=== PATIENT | male | born 1960 | race Caucasian/White ===

== ENCOUNTER 2017-04-07 10:44 | Observation (INO) | payer MEDICAID ==
[~2017-04-07] VITALS: Ht 193 cm; Wt 135.3 kg
--- NOTE | ~2017-04-07 | EC ---
PATIENT:GILBERTO VARGAS DATE OF SERVICE: 04/07/17 SEX: M MEDICAL RECORD: [id number] DATE OF : 62 LOCATION:D.M2 D.211 AGE OF PATIENT: 56 ADMISSION DATE: 04/07/17 REFERRING PHYSICIAN: INTERPRETING PHYSICIAN: BRIDGETTE PERRY MD ECHOCARDIOGRAM REPORT ECHO CHARGES 4 ECHO COMPLETE CLINICAL DIAGNOSIS: TIA ECHOCARDIOGRAPHIC MEASUREMENTS (adult normal given) AC root (d.<3.7cm) 3.6 cm LV Septum d (<1.2 cm> 1.6 cm Valve Excursion 2.3 cm LV Septum (systole) 2.2 cm Left Atria (s.<4.0cm> 3.5 cm LVPW d(<1.2cm) 1.7 cm RV (d.<2.3cm) 2.5 cm LVPW (sytole) 2.1 cm LV diastole(<5.6CM) 6.6 cm MV E-F(>70mm/sec) cm LV systole 4.2 cm LVOT Diameter 2.2 cm MV exc.(>10mm) cm Est.ejection fraction (50-75%) % Pericardial Effusion N DOPPLER: LVIT cm/sec A 52.0 cm/sec E 50.0 cm/sec LA cm/sec RVSP 32.3 mmHg LVOT 107 cm/sec AOP1/2T m/s Asc. Ao 131 cm/sec RVOT 65.0 cm/sec RA cm/sec PA 82.0 cm/sec AV Gradient Peak 6.9 mmHg AV Mean 3.7 mmHg AV Area 3.0 cm MV Gradient Peak 3.2 mmHg MV Mean 0.70 mmHg MV Area cm COMMENTS: Leasing Associate: Kelby CARPENTEROE Pulmonary Specialist: 1 Dr. Perry TAPE# PACS DATE OF SERVICE: 04/07/2017 Echocardiogram FINDINGS: 1. Left ventricle chamber size is within normal limits. Left ventricular systolic function is normal. Overall ejection fraction estimated at 60%. 2. Left atrium, right atrium, and right ventricular chamber sizes are within normal limits. 3. Valvular structures have normal structure and motion. ECHOCARDIOGRAM REPORT [id number] GILBERTO VARGAS 4. Doppler interrogation reveals only trace mitral regurgitation. No other valvular insufficiency or stenosis. Pulmonary systolic pressure is normal estimated at 32 mmHg. 5. No evidence of pericardial effusion or left ventricular thrombus. TRANSINT:[id number] Voice Confirmation ID: [id number] DOCUMENT ID: [id number] BRIDGETTE PERRY MD CC: [id number] DICTATION DATE: 04/07/17 1640 MULE PACKER: 04/08/17 0038 ADM IN [facility] [address] [id number]
[2017-04-07 11:34] LABS: BASOPHILS 0.4 % (0-2); EOSINOPHILS 1.8 % (0-7); HEMATOCRIT 51.1 % (42.0-54.0); HEMOGLOBIN 17.3 g/dL (13.5-17.5); IMMATURE GRANULOCYTES 0.4 % (0-5); LYMPHOCYTES 34.3 % (15-50); MCH 29.9 pg (26.0-34.0); MCHC 33.9 g/dL (31.0-37.0); MCV 88.4 fL (80.0-100.0); MEAN PLATELET VOLUME 11.7 fL (7.4-10.4); MONOCYTES 8.1 % (2-11); PLATELET COUNT 170 10x3/uL (130-400); RBC 5.78 10x6/uL (4.20-6.10); WBC 7.9 10x3/uL (4.8-10.8)
[2017-04-07 11:45] LABS: APTT 30.1 SECONDS (22.8-39.4); INR 0.96 (0.85-1.17); PROTIME 12.6 SECONDS (11.6-15.0)
[2017-04-07 12:05] LABS: ALKALINE PHOSPHATASE 66 U/L (46-116); ALT (SGPT) 33 U/L (10-68); BILIRUBIN - TOTAL 1.58 mg/dL (0.2-1.3); CALC OSMOLALITY 276 mosm/kg (275-300); CALCIUM 8.4 mg/dL (8.5-10.1); CHLORIDE - SERUM 103 mmol/L (98-107); CREATININE - SERUM 1.1 mg/dL (0.6-1.3); GLUCOSE 103 mg/dL (74-106); POTASSIUM - SERUM 3.7 mmol/L (3.5-5.1); PROTEIN - SERUM 7.8 g/dL (6.4-8.2); SODIUM 138 mmol/L (136-145); UREA NITROGEN 15 mg/dL (7-18); eGFR NON AFRICAN AMERICAN 74 mL/min (90-120)
[2017-04-07 12:15] LABS: TROPONIN-I < 0.017 ng/mL (0.000-0.060)
[2017-04-07] MEDS ORDERED: PRINIVIL20 MG (14:57)
[2017-04-07 15:11] VITALS: BP 145/88; Ht 193 cm; Wt 135.3 kg
--- NOTE | 2017-04-07 15:21 | NUR ---
PATIENT ARRIVED FROM ER. AWAKE AND ORIENTED. GRACE NETWORK PROGRAM MANAGER GOOD AND EQUAL. FEET PUSHES EQUAL. PUPILS BRISK AND OPENS SPONTANEOUSLY. SPEECH IS CLEAR. NO FACIAL DROOPING. EARLIER TODAY, PT STATED HE HAD DIFFICULTY IN SWALLOWING BUT NOT AT PRESENT. MONITOR ON WILL RATE OF 59 AND SINUS PRESTON. WILL CONTINUE TO MONITOR.
--- NOTE | 2017-04-07 15:35 | NUR ---
SCDS APPLIED TO PT. SANDWICH GIVEN TO PT
--- NOTE | 2017-04-07 15:46 | NUR ---
ECHO COMPLETED AT BS.
[2017-04-07 19:00] VITALS: BP 146/94
--- NOTE | 2017-04-07 19:35 | NUR ---
REPORT RECIEVED. PT UP IN ROOM, ALERT AND ORIENTED X4. PT DENIES NEEDS AT THIS TIME, RR EVEN AND UNLABORED. INTRODUCED SELF AND PLACED NAME ON WHITE BOARD.
[2017-04-08] VITALS: BP 149/110
--- NOTE | 2017-04-08 00:30 | NUR ---
PT RESTING QUIETLY, DENIES NEEDS AT THIS TIME, WILL CTM.
[2017-04-08 04:00] VITALS: BP 145/91
--- NOTE | 2017-04-08 04:00 | NUR ---
IV ALARM SOUNDING, OCLUDED SIDE. ASSESSED IV SITE, IV PATENT AND FLUIDS CONT. RR EVEN AND UNLABORED, PT DENIES NEEDS AT THIS TIME. WILL CTM.
--- NOTE | 2017-04-08 04:58 | NUR ---
PIPE CUTTER REPORTED HIGH BP 173/110, RECHECKED MANUALLY AND BP IS 140/82. RECHECKED AGAIN WITH BP MACHINE AND GOT 145/91. WILL CTM.
--- NOTE | 2017-04-08 07:18 | NUR ---
PT UP IN ROOM, RR EVEN AND UNLABORED. WILL GIVE REPORT ON PT CONDITION FOR THE DAY.
--- NOTE | 2017-04-08 08:05 | NUR ---
AM ROUNDING- RECEIVED REPORT FROM DIRECTOR OF SECURITIES AND REAL ESTATE NURSE MITCH. PT IS CURRENTLY SITTING UP IN BED WITH EYES OPEN RESTING. PT DENIES ANY PAIN AT CURRENT TIME. ON ROOM AIR. ON MONITOR SHOWING SB, HR 50. IV SEEN TO LEFT HAND WITH NS RUNNING AT 50CC. NO NEED AT CURRENT TIME. WILL CONTINUE TO MONITOR AND CONTINUE WITH PLAN OF CARE.
[2017-04-08 10:02] VITALS: BP 163/94
[2017-04-08 12:00] VITALS: BP 178/110
[2017-04-08 15:53] LABS: CHOL - HDL RATIO 7.4 ratio (2.3-4.9); LDL-HDL RATIO 4.1 ratio (1.5-3.5)
[2017-04-08] MEDS ORDERED: ASPIRIN325 MG PO (16:54)
--- NOTE | 2017-04-08 17:47 | NUR ---
PT IS SITTING IN BED WITH EYES OPEN RESTING. PT IS ANXIOUSLY AWAITING D/C. INFORMED PT THAT I AM WAITING ON D/C PAPERWORK TO BE COMPLETED. WILL CONTINUE TO MONITOR.
--- NOTE | 2017-04-08 18:33 | NUR ---
RECEIVED CALLBACK FROM DR. BOWSER. INFORMED DR. BOWSER OF PTS BLODD PRESSURES 1) 177/98 2) 167/90 3) 180/[address] BOWSER STATES TO HAVE PT TAKE 10MG (DR. BOWSER INCREASED PTS DOSE TO 30MG FROM 20MG) WHEN GETS HOME. WILL RELAY THIS INFORMATION TO PT AND D/C ORDERED.
--- NOTE | 2017-04-08 18:43 | NUR ---
D/C PAPERWORK EXPLAINED TO PT. D/C PAPERWORK SIGNED BY PT AND PLACED IN CHART. IV TO LEFT HAND REMOVED WITH CATH TIP INTACT. HEART MONITOR REMOVED AND RETURNED TO NATASHA IN TELEMETRY. PT IS AWAITING FAMILY MEMBER TO PICK HIM UP. WILL CONTINUE TO MONITOR.
== END 2017-04-08 18:53 | disposition home or self-care (01) ==
LOC: D.ER 10:44 → OBSVTIME 13:36 → D.M2 13:36
PROVIDERS: Emergency Medicine; Family Medicine; ADMIT Family Medicine
DX: I66.02 Occlusion and stenosis of left middle cerebral artery (principal); I10 Essential (primary) hypertension; R40.2363 Coma scale, best motor response, obeys commands, at hospital admission; R40.2143 Coma scale, eyes open, spontaneous, at hospital admission; R40.2253 Coma scale, best verbal response, oriented, at hospital admission; Z86.73 Personal history of transient ischemic attack (TIA), and cerebral infarction without residual deficits; Z72.0 Tobacco use

== ENCOUNTER 2019-08-07 12:30 | Emergency (ER) | payer MEDICAID ==
[~2019-08-07] VITALS: Ht 193 cm; Wt 118.8 kg
[~2019-08-07 12:30] MED LIST: ASPIRIN325 MG PO; PRINIVIL20 MG
[2019-08-07 12:42] VITALS: Ht 193 cm; Wt 118.8 kg
[2019-08-07] MEDS ORDERED: CHLORTHALIDONE25 MG PO (12:45)
[2019-08-07] MEDS ORDERED: TENORMIN50 MG PO (12:45)
[2019-08-07 13:41] LABS: BASOPHILS 0.1 % (0-2); EOSINOPHILS 0.2 % (0-7); HEMATOCRIT 56.8 % (42.0-54.0); HEMOGLOBIN 19.3 g/dL (13.5-17.5); IMMATURE GRANULOCYTES 0.3 % (0-5); LYMPHOCYTES 11.2 % (15-50); MCH 30.1 pg (26.0-34.0); MCV 88.5 fL (80.0-100.0); MEAN PLATELET VOLUME 10.7 fL (7.4-10.4); MONOCYTES 5.2 % (2-11); PLATELET COUNT 220 10x3/uL (130-400); RBC 6.42 10x6/uL (4.20-6.10); WBC 12.3 10x3/uL (4.8-10.8)
[2019-08-07 13:46] LABS: CALC OSMOLALITY 272 mosm/kg (275-300); CALCIUM 9.6 mg/dL (8.5-10.1); CARBON DIOXIDE 25.8 mmol/L (21.0-32.0); CHLORIDE - SERUM 101 mmol/L (98-107); CREATININE - SERUM 0.8 mg/dL (0.6-1.3); GLUCOSE 110 mg/dL (74-106); POTASSIUM - SERUM 4.1 mmol/L (3.5-5.1); SODIUM 138 mmol/L (136-145); UREA NITROGEN 0 mg/dL (7-18); eGFR NON AFRICAN AMERICAN > 90 mL/min (90-120)
[2019-08-07 13:57] LABS: APTT 30.5 SECONDS (22.8-39.4); INR 1.03 (0.85-1.17)
[2019-08-07 13:58] LABS: ALKALINE PHOSPHATASE 76 U/L (46-116); ALT (SGPT) 27 U/L (10-68); BILIRUBIN - TOTAL 2.42 mg/dL (0.2-1.3); CREATINE KINASE 61 UL (21-232); PROTEIN - SERUM 8.6 g/dL (6.4-8.2)
[2019-08-07 14:25] LABS: ALBUMIN 4.1 g/dL (3.4-5.0); MAGNESIUM - SERUM 2.3 mg/dL (1.8-2.4); TROPONIN-I < 0.017 ng/mL (0.000-0.060)
[2019-08-07 18:03] LABS: CALC OSMOLALITY 278 mosm/kg (275-300); CALCIUM 9.8 mg/dL (8.5-10.1); CARBON DIOXIDE 24.3 mmol/L (21.0-32.0); CHLORIDE - SERUM 101 mmol/L (98-107); CREATININE - SERUM 0.7 mg/dL (0.6-1.3); GLUCOSE 110 mg/dL (74-106); SODIUM 138 mmol/L (136-145); eGFR NON AFRICAN AMERICAN > 90 mL/min (90-120)
[2019-08-07 18:10] LABS: UREA NITROGEN 17 mg/dL (7-18)
[2019-08-07 19:00] VITALS: BP 159/96
== END 2019-08-07 19:00 | disposition home or self-care (01) ==
LOC: D.ER 12:30
PROVIDERS: Family Medicine
DX: E86.0 Dehydration (principal); R94.6 Abnormal results of thyroid function studies; Z86.73 Personal history of transient ischemic attack (TIA), and cerebral infarction without residual deficits; I10 Essential (primary) hypertension; Z72.0 Tobacco use

== ENCOUNTER 2019-09-10 08:09 | Inpatient (IN) | payer MEDICAID ==
[~2019-09-10] VITALS: Ht 193 cm; Wt 120.2 kg
[~2019-09-10 08:09] MED LIST changes: +CHLORTHALIDONE25 MG PO; +TENORMIN50 MG PO
[2019-09-10] MEDS ORDERED: ZESTRIL10 MG PO (08:23)
[2019-09-10 08:37] LABS: BASOPHILS 0.1 % (0-2); EOSINOPHILS 0.1 % (0-7); HEMATOCRIT 52.7 % (42.0-54.0); HEMOGLOBIN 17.9 g/dL (13.5-17.5); IMMATURE GRANULOCYTES 0.3 % (0-5); LYMPHOCYTES 5.5 % (15-50); MCH 29.2 pg (26.0-34.0); MCV 85.8 fL (80.0-100.0); PLATELET COUNT 206 10x3/uL (130-400); RBC 6.14 10x6/uL (4.20-6.10); RDW 13.2 % (11.5-14.5); WBC 15.5 10x3/uL (4.8-10.8)
[2019-09-10 08:42] LABS: CALC OSMOLALITY 282 mosm/kg (275-300); CARBON DIOXIDE 26.4 mmol/L (21.0-32.0); CHLORIDE - SERUM 103 mmol/L (98-107); CREATININE - SERUM 0.7 mg/dL (0.6-1.3); GLUCOSE 115 mg/dL (74-106); INR 1.25 (0.85-1.17); POTASSIUM - SERUM 4.2 mmol/L (3.5-5.1); PROTIME 15.6 SECONDS (11.6-15.0); SODIUM 141 mmol/L (136-145); UREA NITROGEN 15 mg/dL (7-18); eGFR NON AFRICAN AMERICAN > 90 mL/min (90-120)
[2019-09-10 08:44] LABS: APTT 92.6 SECONDS (22.8-39.4)
[2019-09-10 08:50] LABS: ALBUMIN 4.4 g/dL (3.4-5.0); ALKALINE PHOSPHATASE 88 U/L (46-116); ALT (SGPT) 26 U/L (10-68); AMYLASE - SERUM 48 U/L (25-115); BILIRUBIN - TOTAL 2.46 mg/dL (0.2-1.3); LIPASE 100 U/L (73-393); PROTEIN - SERUM 7.9 g/dL (6.4-8.2)
[2019-09-10 08:51] LABS: TROPONIN-I < 0.017 ng/mL (0.000-0.060)
[2019-09-10 09:59] VITALS: BP 164/103
[2019-09-10 10:52] LABS: APPEARANCE CLEAR (CLEAR); BACTERIA FEW /hpf (NEGATIVE); BILIRUBIN NEGATIVE (NEGATIVE); COLOR YELLOW (YELLOW); EPITHELIAL CELLS OCC /hpf (0-5); GLUCOSE NEGATIVE (NEGATIVE); KETONE MODERATE mg/dL (NEGATIVE); MUCUS <1+ /lpf (NONE SEEN); NITRITE NEGATIVE (NEGATIVE); PROTEIN NEGATIVE (NEGATIVE); RED CELLS - URINE 0-5 /hpf (0-5); SPECIFIC GRAVITY 1.015 (1.005-1.020); URIC ACID CRYSTALS 0-5 /hpf (NONE SEEN); UROBILINOGEN NORMAL (NORMAL); WHITE CELLS - URINE NSEEN /hpf (NEGATIVE)
[2019-09-10 11:44] VITALS: BP 160/110
--- NOTE | 2019-09-10 13:55 | NUR ---
PT ARRIVED VIA STRECHER. PT IS LETHARGIC PUT AROUSES EASILY WITH VERBAL STIMULI. ABLE TO ANSWER MOST QUESTIONS APPROPRIATELY WITH HELP FROM FAMILY MEMEBERS. DENIES NEEDS OR PAIN AT THIS TIME. RR EVEN AND UNLABORED ON 3L NC. 18G NOTED TO RIGHT AC INFUSING NS @ 125 AND PROTONIX @ 10MLS/HR. ORIENTED TO SELF AND PLACE, DISORIENTED TO TIME AND SITUATION. BED IN LOWEST POSITION. CALL LIGHT WITHIN REACH. PT ORIENTED TO ROOM. WILL CONTINUE TO MONITOR.
[2019-09-10 16:59] LABS: % SATURATION 23 % (15-55); IRON 71 ug/dl (35-150); TOTAL IRON BIND CAPACITY 308 ug/dl (260-445); UNSAT IRON BIND CAPACITY 237 ug/dl (150-375)
--- NOTE | 2019-09-10 17:17 | NUR ---
UPON WALKING INTO ROOM, PT HAD PULLED IV OUT WHILE RESTING. CATHETER TIP INTACT. 20G RESITED TO LEFT FOREARM. DRESSING PLACED OVER SITE
[2019-09-10 17:20] VITALS: BP 155/99
[2019-09-10 18:36] LABS: HEMATOCRIT 48.5 % (42.0-54.0); HEMOGLOBIN 16.1 g/dL (13.5-17.5)
[2019-09-10 20:00] VITALS: BP 152/84
--- NOTE | 2019-09-10 20:00 | NUR ---
EYES CLOSED RESTING QUITELY AROUSED TO VOICE, REPORTS HAVING PEROIDS OF CONFUSION NOT SURE WHAT IS GOING ON, SEE SHIFT ASSESSMENT, CALL LIGHT IN REACH
[2019-09-10 20:06] VITALS: BP 145/80; BMI 32.3
[2019-09-10 23:34] LABS: HEMATOCRIT 49.2 % (42.0-54.0); HEMOGLOBIN 15.8 g/dL (13.5-17.5)
[2019-09-11 00:39] VITALS: BP 159/95
[2019-09-11 04:00] VITALS: BP 124/66
[2019-09-11 05:20] LABS: BASOPHILS 0.1 % (0-2); EOSINOPHILS 0.5 % (0-7); HEMATOCRIT 46.8 % (42.0-54.0); HEMOGLOBIN 15.2 g/dL (13.5-17.5); IMMATURE GRANULOCYTES 0.2 % (0-5); LYMPHOCYTES 24.8 % (15-50); MCH 28.4 pg (26.0-34.0); MCHC 32.5 g/dL (31.0-37.0); MCV 87.3 fL (80.0-100.0); MONOCYTES 10.6 % (2-11); NEUTROPHILS 63.8 % (40-80); PLATELET COUNT 205 10x3/uL (130-400); RBC 5.36 10x6/uL (4.20-6.10); RDW 13.6 % (11.5-14.5)
[2019-09-11 05:30] LABS: WBC 9.5 10x3/uL (4.8-10.8)
[2019-09-11 06:13] LABS: ALBUMIN 3.5 g/dL (3.4-5.0); ALKALINE PHOSPHATASE 66 U/L (46-116); ALT (SGPT) 23 U/L (10-68); BILIRUBIN - TOTAL 3.84 mg/dL (0.2-1.3); CALC OSMOLALITY 282 mosm/kg (275-300); CALCIUM 8.6 mg/dL (8.5-10.1); CARBON DIOXIDE 26.4 mmol/L (21.0-32.0); CHLORIDE - SERUM 105 mmol/L (98-107); CREATININE - SERUM 0.7 mg/dL (0.6-1.3); GLUCOSE 86 mg/dL (74-106); PROTEIN - SERUM 6.9 g/dL (6.4-8.2); SODIUM 142 mmol/L (136-145); UREA NITROGEN 15 mg/dL (7-18); eGFR NON AFRICAN AMERICAN > 90 mL/min (90-120)
[2019-09-11 06:35] LABS: POTASSIUM - SERUM 3.3 mmol/L (3.5-5.1)
[2019-09-11 08:13] VITALS: BP 136/77
[2019-09-11 08:50] LABS: UDS - AMPHET NEGATIVE QUAL (NEGATIVE); UDS - BARB NEGATIVE QUAL (NEGATIVE); UDS - BENZO NEGATIVE QUAL (NEGATIVE); UDS - COCAINE NEGATIVE QUAL (NEGATIVE); UDS - OPIATE NEGATIVE QUAL (NEGATIVE); UDS - PCP NEGATIVE QUAL (NEGATIVE); UDS - THC POSITIVE QUAL (NEGATIVE)
[2019-09-11 11:21] VITALS: Ht 193 cm; Wt 120.2 kg
--- NOTE | 2019-09-11 11:22 | NUR ---
PT ALERT X 4. BREATH SOUNDS CLEAR BILAT. IV TO LEFT FOREARM, PATENT, DRESSING CDI. PT REPORTING NO PAIN AT THIS TIME, WILL CONTINUE TO MONITOR. FAMILY AT BEDSIDE. BED LOW, CALL LIGHT IN REACH. NO OTHER NEEDS AT THIS TIME.
[2019-09-11 13:05] VITALS: BP 133/78
[2019-09-11 16:33] VITALS: BP 130/70
--- NOTE | 2019-09-11 19:00 | NUR ---
BEDSIDE REPORT RECEIVED AND CARE OF PT ASSUMED. PT LYING IN SUPINE POSITION WATCHING TV. IV TO RIGHT WRIST PATENT WITH NS INFUSING AT 75 ML/HR. TELEMETRY IN PLACE AND READING SR AT THIS ASSESSMENT. WILL MONITOR FOR NEEDS.
[2019-09-11 20:00] VITALS: BP 109/69
--- NOTE | 2019-09-11 20:40 | NUR ---
PT PULLED OUT IV GOING TO RESTROOM, WITH CATHETER TIP INTACT. RE-SITED TO RIGHT WRIST USING 20 GUAGE CATHETER IN ONE STICK. IV FLUIDS RE-STARTED.
--- NOTE | 2019-09-11 22:01 | NUR ---
HS MEDICATIONS GIVEN. WILL CONTINUE TO MONITOR FOR NEEDS.
[2019-09-12] VITALS: BP 116/59
--- NOTE | 2019-09-12 | NUR ---
NPO STATUS BEGINS NOW. ALL FOOD AND DRINKS REMOVED FROM BEDSIDE TABLE.
[2019-09-12 04:00] VITALS: BP 127/53; BP 96/51
[2019-09-12 05:54] LABS: ALBUMIN 3.1 g/dL (3.4-5.0); ALKALINE PHOSPHATASE 55 U/L (46-116); ALT (SGPT) 23 U/L (10-68); BILIRUBIN - TOTAL 4.69 mg/dL (0.2-1.3); CALC OSMOLALITY 283 mosm/kg (275-300); CALCIUM 8.2 mg/dL (8.5-10.1); CARBON DIOXIDE 28.3 mmol/L (21.0-32.0); CHLORIDE - SERUM 108 mmol/L (98-107); CREATININE - SERUM 0.7 mg/dL (0.6-1.3); GLUCOSE 102 mg/dL (74-106); PROTEIN - SERUM 6.2 g/dL (6.4-8.2); SODIUM 142 mmol/L (136-145); UREA NITROGEN 15 mg/dL (7-18); eGFR NON AFRICAN AMERICAN > 90 mL/min (90-120)
[2019-09-12 05:56] LABS: POTASSIUM - SERUM 3.8 mmol/L (3.5-5.1)
--- NOTE | 2019-09-12 06:45 | NUR ---
ALERT AND ORIENTED, RESTING IN BED WITH EYES OPEN. NO C/O PAIN. NO S/S OF ACUTE DISTRESS NOTED. IV TO RIGHT WRIST, NS INFUSING @ 75ML/HR. SITE PATENT WITHOUT REDNESS OR SWELLING. ON TELEMETRY 63 SR. SCDS PRESENT. DENIES ANY NEEDS AT THIS TIME. CALL LIGHT IN REACH. WILL CONTINUE TO MONITOR.
[2019-09-12 07:38] LABS: BASOPHILS 0.2 % (0-2); EOSINOPHILS 1.4 % (0-7); HEMATOCRIT 44.1 % (42.0-54.0); HEMOGLOBIN 14.2 g/dL (13.5-17.5); IMMATURE GRANULOCYTES 0.2 % (0-5); LYMPHOCYTES 38.9 % (15-50); MCH 28.3 pg (26.0-34.0); MCHC 32.2 g/dL (31.0-37.0); MEAN PLATELET VOLUME 11.2 fL (7.4-10.4); MONOCYTES 11.4 % (2-11); NEUTROPHILS 47.9 % (40-80); RBC 5.01 10x6/uL (4.20-6.10); RDW 13.3 % (11.5-14.5)
[2019-09-12 07:46] LABS: PLATELET COUNT 161 10x3/uL (130-400); WBC 5.8 10x3/uL (4.8-10.8)
[2019-09-12 07:52] VITALS: BP 150/80
--- NOTE | 2019-09-12 08:00 | NUR ---
LYING IN BED,WITHOUT SIGNS OF DISTRESS.CALL LIGHT IN REACH
[2019-09-12 08:11] LABS: HEPATITIS C ANTIBODY <0.1 S/CO RAT (0.0-0.9)
[2019-09-12 12:14] VITALS: BP 101/71
--- NOTE | 2019-09-12 13:22 | MORECARE ---
CASE MANAGEMENT DISCHARGE SUMMARY PATIENT: GILBERTO VARGAS UNIT: [id number] ADM DATE: 09/10/19 AGE: 59 : 62 SEX: M ROOM/BED: D.2227 AUTHOR: SUSANA WAITE PHYSICIAN: REFERRING PHYSICIAN: CHRISTIANO PAGE MD DATE OF SERVICE: 09/12/19 Discharge Plan Patient Name: GILBERTO VARGAS [facility] [facility] 1960 Planned Disposition: Home Anticipated Discharge Date: Discharge Date: Expected LOS: Initial Reviewer: [email or web address] Initial Review Date: 09/12/2019 Generated: 09/12/19 2:22 pm Patient Name: GILBERTO VARGAS Page [id number] at 1322 All edits/amendments must be made on the electronic document DICTATION DATE: 09/12/19 1322 TELEGRAPH MESSENGER: ANA 09/12/19 1322 RPT#: [id number] DC DATE: STATUS: ADM IN [facility] [address] [place] [address] END OF REPORT
--- NOTE | 2019-09-12 13:30 | MORECARE ---
CASE MANAGEMENT DISCHARGE SUMMARY PATIENT: GILBERTO VARGAS UNIT: [id number] ADM DATE: 09/10/19 AGE: 59 : 62 SEX: M ROOM/BED: D.2227 AUTHOR: MARIANN,DOC PHYSICIAN: REFERRING PHYSICIAN: CHRISTIANO PAGE MD DATE OF SERVICE: 09/12/19 Discharge Plan Patient Name: GILBERTO VARGAS Facility: [facility]:[place] : 1960 Planned Disposition: Home Anticipated Discharge Date: Discharge Date: Expected LOS: Initial Reviewer: [email or web address] Initial Review Date: 09/12/2019 Generated: 09/12/19 2:30 pm Comments DCP- Discharge Planning Updated by [id number]: Ania Morin on 09/12/19 12:[address] Patient Name: GILBERTO VARGAS Admission Status: Elective Accout number: [id number] Admission Date: 09-10-2019 : 1960 Admission Diagnosis: Attending: CHRISTIANO PAGE Current LOS: 2 Anticipated DC Date: Planned Disposition: Home Primary Insurance: MEDICAID [place] Discharge Planning Comments: CM met with patient to complete initial dc planning assessment. CM educated patient on the CM role and verbal consent given by patient to complete assessment. Patient lives at home with his 98 year old aunt. He states he is independent with all ADL's and he does drive. He states his aunt is independent and can take care of herself while he is hospitalized. At discharge patient plans to return home and feels this is a safe discharge. CM discussed availability of home health, rehab services, and medical equipment. Patient denied known discharge needs at this time. States his sister will drive him home on discharge. CM will continue to follow and will assist as needed with dc plans/needs. Full Fashioned Garment Knitter: Ania Morin DCPIA - Discharge Planning Initial Assessment Updated by [email or web address]: Ania Morin on 09/12/19 1:22 pm * Is the patient Alert and Oriented? Yes * How many steps to enter\exit or inside your home? 1/0 * PCP Glory Fairchild with [facility] * Pharmacy [facility] [address] * Preadmission Environment Home with Family * ADLs Independent * Equipment None * List name and contact numbers for known caregivers / representatives who currently or will assist patient after discharge: Lexy Nye [facility] - [phone] * Verbal permission to speak to the caregivers and representatives has been obtained from the patient. Yes * Community resources currently utilized None * Additional services required to return to the preadmission environment? No * Can the patient safely return to the preadmission environment? Yes * Has this patient been hospitalized within the prior 30 days at any hospital? No Last DP export: 09/12/19 12:22 p Patient Name: GILBERTO VARGAS Page [id number] at 1330 All edits/amendments must be made on the electronic document DICTATION DATE: 09/12/191329 SUPERVISOR MATTRESS AND BOXSPRINGS: ANA 09/12/191329 RPT#: [id number] DC DATE: STATUS: ADM IN [facility] [address] [place] [address] END OF REPORT
--- NOTE | 2019-09-12 14:23 | NUR ---
BROUGHT PATIENT TO MRI FOR SCAN OF HIS BRAIN WITHOUT AND WITH CONTRAST. PATIENT QUIT BEFORE WE GAVE CONTRAST. C/O BACK PAIN.
[2019-09-12 16:33] VITALS: BP 123/54
[2019-09-12 20:00] VITALS: BP 160/89
[2019-09-13] VITALS: BP 159/67
--- NOTE | 2019-09-13 00:31 | NUR ---
ASSESSED AT THE BEGINNING OF THE SHIFT. PT IS ALERT AND ORIENTED, ABLE TO VERBALIZE NEEDS. TALKED WITH PATIENT ABOUT BEING NPO AT MIDNIGHT AND OFFERED SNACK BEFORE THEN BUT HE DECLINED.HE IS WEARING HIS TELEMETRY AND SCD.S. HE IS ALSO ABLE TO GET UP TO THE BATHROOM AD [place] WHEN NEEDED.
[2019-09-13 04:00] VITALS: BP 153/97
--- NOTE | 2019-09-13 05:11 | NUR ---
UP FOR SHOWER THIS MORNING.
[2019-09-13 05:36] LABS: ALBUMIN 3.2 g/dL (3.4-5.0); ALKALINE PHOSPHATASE 59 U/L (46-116); ALT (SGPT) 18 U/L (10-68); BILIRUBIN - DIRECT 0.37 mg/dL (0.00-0.30); BILIRUBIN - TOTAL 3.37 mg/dL (0.2-1.3); CALC OSMOLALITY 280 mosm/kg (275-300); CALCIUM 8.3 mg/dL (8.5-10.1); CARBON DIOXIDE 29.5 mmol/L (21.0-32.0); CHLORIDE - SERUM 106 mmol/L (98-107); CREATININE - SERUM 0.7 mg/dL (0.6-1.3); GLUCOSE 92 mg/dL (74-106); POTASSIUM - SERUM 3.6 mmol/L (3.5-5.1); PROTEIN - SERUM 6.5 g/dL (6.4-8.2); SODIUM 141 mmol/L (136-145); UREA NITROGEN 13 mg/dL (7-18); eGFR NON AFRICAN AMERICAN > 90 mL/min (90-120)
[2019-09-13 05:37] LABS: BASOPHILS 0.2 % (0-2); EOSINOPHILS 1.6 % (0-7); HEMATOCRIT 43.8 % (42.0-54.0); HEMOGLOBIN 14.5 g/dL (13.5-17.5); IMMATURE GRANULOCYTES 0.2 % (0-5); LYMPHOCYTES 33.5 % (15-50); MCH 28.5 pg (26.0-34.0); MCHC 33.1 g/dL (31.0-37.0); MCV 86.1 fL (80.0-100.0); MEAN PLATELET VOLUME 11.3 fL (7.4-10.4); MONOCYTES 13.5 % (2-11); PLATELET COUNT 167 10x3/uL (130-400); RBC 5.09 10x6/uL (4.20-6.10); RDW 12.7 % (11.5-14.5); WBC 5.6 10x3/uL (4.8-10.8)
[2019-09-13 09:00] VITALS: BP 154/92
--- NOTE | 2019-09-13 09:51 | NUR ---
WILL GIVE AM MEDS AFTER PIPIDA SCAN. TEST SHOULD BE WITHIN HOUR PER MUSA.
--- NOTE | 2019-09-13 13:08 | NUR ---
NUTRITION F/U CLEAR LIQUID DIET STARTED. WILL MONITOR DIET ADVANCEMENT, PO INTAKE. ASSIST WITH NUTRITION SUPPORT IF NEEDED. RD FOLLOWING
[2019-09-13 13:16] VITALS: BP 160/89
[2019-09-13 17:23] VITALS: BP 172/85
[2019-09-13] MEDS ORDERED: LEVOFLOXACIN500 MG PO (17:57)
[2019-09-13] MEDS ORDERED: TAPAZOLE 10 MG10 MG PO (17:59)
--- NOTE | 2019-09-14 18:26 | MORECARE ---
CASE MANAGEMENT DISCHARGE SUMMARY PATIENT: GILBERTO VARGAS UNIT: [id number] ADM DATE: 09/10/19 AGE: 59 : 62 SEX: M ROOM/BED: D.2227 AUTHOR: MARIANN,DOC PHYSICIAN: REFERRING PHYSICIAN: CHRISTIANO PAGE MD DATE OF SERVICE: 09/14/19 Discharge Plan Patient Name: GILBERTO VARGAS Facility: [facility]:[place] : 1960 Planned Disposition: Home Anticipated Discharge Date: Discharge Date: 09/13/2019 Expected LOS: Initial Reviewer: [email or web address] Initial Review Date: 09/12/2019 Generated: 09/14/19 7:25 pm Comments DCP- Discharge Planning Updated by [email or web address]: Ania Morin on 09/12/19 12:[address] Patient Name: GILBERTO VARGAS Admission Status: Elective Accout number: [id number] Admission Date: 09-10-2019 : 1960 Admission Diagnosis: Attending: CHRISTIANO PAGE Current LOS: 2 Anticipated DC Date: Planned Disposition: Home Primary Insurance: MEDICAID [place] Discharge Planning Comments: CM met with patient to complete initial dc planning assessment. CM educated patient on the CM role and verbal consent given by patient to complete assessment. Patient lives at home with his 98 year old aunt. He states he is independent with all ADL's and he does drive. He states his aunt is independent and can take care of herself while he is hospitalized. At discharge patient plans to return home and feels this is a safe discharge. CM discussed availability of home health, rehab services, and medical equipment. Patient denied known discharge needs at this time. States his sister will drive him home on discharge. CM will continue to follow and will assist as needed with dc plans/needs. Disulfurizer Tender: Ania Morin DCPIA - Discharge Planning Initial Assessment Updated by [email or web address]: Ania Morin on 09/12/19 1:22 pm * Is the patient Alert and Oriented? Yes * How many steps to enter\exit or inside your home? 1/0 * PCP Glory Fairchild with [facility] * Pharmacy [facility] [address] * Preadmission Environment Home with Family * ADLs Independent * Equipment None * List name and contact numbers for known caregivers / representatives who currently or will assist patient after discharge: Lexy Nye - [facility] - [phone] * Verbal permission to speak to the caregivers and representatives has been obtained from the patient. Yes * Community resources currently utilized None * Additional services required to return to the preadmission environment? No * Can the patient safely return to the preadmission environment? Yes * Has this patient been hospitalized within the prior 30 days at any hospital? No Last DP export: 09/12/19 12:30 p Patient Name: GILBERTO VARGAS Page [phone] at 1826 All edits/amendments must be made on the electronic document DICTATION DATE: 09/14/191824 MEDICAL HISTORIAN: ANA 09/14/191824 RPT#: [id number] DC DATE:09/13/19 STATUS: DIS IN [facility] [address] [place] [address] END OF REPORT
[2019-09-16 12:09] LABS: CHENODEOXYCHOLIC ACID 2.8 umol/L (()); CHOLIC ACID 0.2 umol/L (()); DEOXYCHOLIC ACID 0.3 umol/L (()); TOTAL BILE ACIDS 4.3 umol/L (())
[2019-09-16 21:06] LABS: CHLAMYDIA TRACHOMATIS, NAA Negative (Negative)
== END 2019-09-13 20:30 | disposition home or self-care (01) | DRG 394 ==
LOC: D.ER 08:09 → D.MS 11:29
PROVIDERS: Family Medicine; ADMIT Internal Medicine Nephrology; ATTEND Internal Medicine Nephrology
DX: K43.2 Incisional hernia without obstruction or gangrene (principal); N39.0 Urinary tract infection, site not specified; K92.2 Gastrointestinal hemorrhage, unspecified; G93.40 Encephalopathy, unspecified; F17.203 Nicotine dependence unspecified, with withdrawal; D68.59 Other primary thrombophilia; D64.9 Anemia, unspecified; R63.4 Abnormal weight loss; Z68.32 Body mass index [BMI] 32.0-32.9, adult; K80.80 Other cholelithiasis without obstruction; I10 Essential (primary) hypertension; F12.10 Cannabis abuse, uncomplicated; G40.909 Epilepsy, unspecified, not intractable, without status epilepticus; E80.6 Other disorders of bilirubin metabolism